=== PATIENT | male | born 1985 | race Caucasian/White ===

== ENCOUNTER 2018-03-06 16:47 | Emergency (ER) | payer OTHER ==
[~2018-03-06] VITALS: Wt 111.1 kg
[~2018-03-06 16:47] MED LIST: CYCLOBENZAPRINE10 MG PO; MOBIC15 MG PO; NAPROSYN500 MG PO
[2018-03-06] MEDS ORDERED: ROSUVASTATIN CA10 MG PO (16:55)
== END 2018-03-06 18:18 | disposition home or self-care (01) ==
LOC: ED 16:47
DX: S60.453A Superficial foreign body of left middle finger, initial encounter (principal); Z23 Encounter for immunization; X58.XXXA Exposure to other specified factors, initial encounter; Y93.89 Activity, other specified; Y92.89 Other specified places as the place of occurrence of the external cause; Y99.8 Other external cause status